=== PATIENT | female | born 1990 | race Caucasian/White ===

== ENCOUNTER 2019-08-28 09:02 | Inpatient (IN) | payer OTHER, SELFPAY ==
[2017-02-08 11:22] VITALS: BMI 21.3
[2019-08-28] VITALS (17 sets, daily range): BP systolic 97–133; BP diastolic 58–79; PULSE 56–83; RESP 16; TEMP 36.6–36.8; O2SAT 98–100; BMI 23.9
[2019-08-28] MEDS: Lactated Ringers 1,000 ML 50 ML IV (09:28)
[2019-08-28 09:30] LABS: Absolute Lymphocyte Count 1.98 X10^3/uL (0.83-4.51); Absolute Neutrophil Count 5.1 X10^3/uL (2.0-7.7); Basophil# 0.06 X10^3/uL; Basophil% 0.8 % (0-1); Eosinophil# 0.04 X10^3/uL; Eosinophils% 0.5 % (0-5); Hematocrit 41.6 % (37-47); Hemoglobin 14.2 g/dL (12.0-15.0); Lymphocyte # 1.98 X10^3/ul (4.0); Lymphocyte % 25.8 % (19-41); Mean Corp Hgb Conc 34.1 g/dL (32-36); Mean Corpuscular Hgb 32.6 pg (27.0-32.0); Mean Corpuscular Volume 95.6 fL (81-99); Mean Platelet Vol. 12.7 fl (6.2-12.0); Monocyte# 0.47 X10^3/uL; Monocyte% 6.1 % (0-10); NRBC Flagged by Analyzer 0 % (0-5); Neutrophil # 5.09 X10^3/uL (2.7-7.7); Neutrophil % 66.3 % (47-70); Platelet Count 162 K/mm3 (150-450); RBC Distribution Width CV 11.8 % (11.6-14.6); RBC Distribution Width SD 40.5 fl (35.1-43.9); Red Blood Count 4.35 M/mm3 (4.2-5.4); White Blood Count 7.7 K/mm3 (4.4-11.0)
[2019-08-28] MEDS: Oxytocin 30 units/NS 500 ml 30 UNITS/500 ML IV.SOLN 334 UNITS IV (10:25)
--- NOTE | 2019-08-28 11:53 | HP.PCM_ITS ---
- Problem List (1) History of section Status: Acute (2) Encounter for trial of labor Status: Acute (3) Active labor at term Status: Acute (4) History of delivery Status: Acute (5) Rh negative status during Status: Acute History Date of Admission: 02/08/17 Final JOSE L: 09/12/19 Final JOSE L Source: US <20 weeks Gestational age: 37 Weeks and 6 Days History of this : This is a 29 year-old, G [3], P [0111], at 37 weeks gestational age. Presented to labor and delivery with contractions every 2-4 minutes and increased pain with contractions. No leakage of fluid or vaginal bleeding. Upon arrival to triage found to be 8 cm dilated. Denies any recent contact with COVID 19 individuals, no shortness of breath, cough, or fever. course complicated by history of section due to breech presentation, , and spontaneous . Allergies No Known Allergies Allergy (Verified 02/08/17 11:23) Home Medications: Home Medications Vits [Prenatabs FA ] 1 tablet PO DAILY 02/08/17 Ibuprofen [Motrin] 600 mg PO Q6H PRN #60 tablet 02/09/17 Oxycodone HCl/Acetaminophen [Percocet 5/325] 1 - 2 tablet PO Q6H PRN PRN #40 tablet 02/09/17 Smoking Status: Never smoker Alcohol: None Number of Fetus(es): 1 NST - FHR Rate Baby A Baseline: 135 Variability:: Moderate Accelerations:: 15 x 15 Decelerations:: None NST Reactive:: Yes FHR Category:: Category I Uterine Activity:: every 2-4 minutes strong History Past Pregnancies: Past Pregnancies Delivery Date Name GA/ Weeks Outcome Route Wt Infant Sex Labor Length Anesthesia Delivery Location Provider FOB Labs: A negative GBS negative 1 hr GCT negative Rubella immune HIGV negative HBs AG negative RPR negative urine tox screen negative Expected Infant Delivery Method: Spontaneous Vaginal Review of Systems Constitutional: Denies: Chills, Fever, Weight Change Eyes: Denies: Blurred vision HEENT: Denies: Head Aches, Sinus Congestion, Sinus Drainage Cardiovascular: Denies: Chest Pain Respiratory: Denies: Shortness of Breath Genitourinary: Denies: Dysuria Neurological: Denies: Numbness, Tingling, Focal weakness Psychiatric: Denies: Anxiety, Depression, Homicidal Ideations, Suicidal Ideations Physical Exam Vitals: Vital Signs Pulse BP Pulse Ox 65 110/68 100 08/28/19 11:45 08/28/19 11:45 08/28/19 08:56 General: Alert, Oriented x3, Cooperative HEENT: Atraumatic, Normocephalic Cardiovascular: Regular rate, Regular Rhythm, No murmurs Lungs: Clear to auscultation, Normal air movement, No rhonchi, No wheeze Abdomen: Gravid Extremities:: No edema Neurological: Deep Tendon Reflexes 2+/4 and Symmetrical EMERY GRINDER: Normal external genitalia Estimated gestational size: Appropriate for gestational size Presentation: Cephalic Cervix Dilation (cm): 8 - vertex, BBOW. AROM for small amount of clear fluid Station: -2 Effacement (%): 90 Assessment/Plan All Active Problems History of section (Acute) Encounter for trial of labor (Acute) Active labor at term (Acute) History of delivery (Acute) Rh negative status during (Acute) This is a 29 year-old, G [3], P [0111], at 37 weeks gestational age in active labor A:Active labor TOLAC #1 Previous LTCS Category 1 FHT P: 1) Admit to labor and delivery 2) IV placement and routine labs 3) Requesting epidural but advanced dilation and after AROM 9cm. 4) Reviewed option of repeat section vs TOLAC, she desires TOLAC. Good candidate, previous section due to breech presentation at 31 weeks in labor. Low transverse section with double layer closure. notified of patient TOLAC and present on hospital property and immediately available if needed. Anesthesia notified by nursing staff of TOLAC. 5) Anticipate vaginal delivery soon. 6) Reviewed no COVID 19 exposures, no cough, shortness of breath, fever, or diarrhea. 7) collaborative physician and notified of patient in labor.
--- NOTE | 2019-08-28 12:20 | PCM.OPRPT ---
Problem List (1) History of section Status: Acute (2) Encounter for trial of labor Status: Acute (3) Active labor at term Status: Acute (4) History of delivery Status: Acute (5) Rh negative status during Status: Acute (6) (vaginal after ) Status: Acute (7) Laceration of vaginal wall or sulcus without perineal laceration during delivery Status: Acute (8) Periurethral laceration, delivered, current hospitalization Status: Acute Vaginal Delivery Maternal Presentation: Active Labor Amniotic Membrane Rupture Type: Artificial Amniotic Fluid Description: Clear Final JOSE L: 09/12/19 Gestational age: 37 Weeks and 6 Days Date of Procedure: 08/28/19 Pre-Operative Diagnosis: Active Labor Post-Operative Diagnosis: Vaginal after section Surgery/ Procedure Performed: Spontaneous Vaginal Delivery Type of Anesthesia: Local with 1% lidocaine Description of Procedure: Presented at 8cm dilation and progressed to complete with urge to push. Unmedicated. Successful of viable male infant over 1st degree right vaginal laceration, left periurethral, left labial, and left sulcus laceration. APGARS 8, 9. head delivered without complications and body forthcoming, strong cry. Mouth and nares suctioned for secretion. Placed on maternal abdomen skin to skin. Pitocin started for active 3rd stage management. Cord clamped and cut after pulsations ceased by FOB. Placenta delivered with maternal effort, intact, 3 vessel cord. Perineum inspected and revealed 1st degree right vaginal laceration and left sulcus laceration repaired with 3.0 vicryl and 1% Lidocaine. Left periurethral and left labial repaired with 3.0 Rapide. Patient tolerated well Well approximated and hemostasis achieved. Vaginal sweep completed. EBL 350ml, hemostasis achieved. Sponge and instrument count complete. . notified of delivery, was present on hospital property for . Presentation: Vertex Placental Delivery Description: Spontaneous Placenta Disposition: [facility] Cord Vessel Description: 3 Vessels Cord Entanglement: None Estimated Blood Loss: 350 ml Infant A gender: Male (1 minute): 8 (5 minute): 9 Episiotomy Description: None Laceration: Periurethral Extnsion/lac - Periurethral left. No clitoral or urethral compromise, intact., Vaginal Extension/lac - Left sulcus laceration. left periclitoral left labial., 1st degree - right 1st degree laceration, vaginal. No midline involvement. Medications given after delivery: IV Pitocin
[2019-08-28] MEDS: Acetaminophen 325 MG Tablet PO (12:56)
[2019-08-28] MEDS: Acetaminophen 500 MG Tablet 1000 MG PO (16:46)
[2019-08-28] MEDS: Dibucaine 30 GM Tube 1 APPLIC TOPICAL (16:46)
[2019-08-29] VITALS (7 sets, daily range): BP systolic 111–119; BP diastolic 65–77; PULSE 55–81; RESP 16–18; TEMP 36.4–36.7
[2019-08-29] MEDS: Acetaminophen 500 MG Tablet 1000 MG PO ×2 (01:45→10:38)
[2019-08-29 06:23] LABS: Hematocrit 35.6 % (37-47); Hemoglobin 12.2 g/dL (12.0-15.0); Mean Corp Hgb Conc 34.3 g/dL (32-36); Mean Corpuscular Hgb 32.6 pg (27.0-32.0); Mean Corpuscular Volume 95.2 fL (81-99); Mean Platelet Vol. 12.7 fl (6.2-12.0); Platelet Count 135 K/mm3 (150-450); RBC Distribution Width CV 11.8 % (11.6-14.6); RBC Distribution Width SD 40.2 fl (35.1-43.9); Red Blood Count 3.74 M/mm3 (4.2-5.4); White Blood Count 11.3 K/mm3 (4.4-11.0)
--- NOTE | 2019-08-29 07:09 | PN.OBGYN_ITS ---
Patient Problems: Active and Suspected Problems History of section (Acute) Encounter for trial of labor (Acute) Active labor at term (Acute) History of delivery (Acute) Rh negative status during (Acute) (vaginal after ) (Acute) Laceration of vaginal wall or sulcus without perineal laceration during delivery (Acute) Periurethral laceration, delivered, current hospitalization (Acute) Subjective: Patient seen at bedside, doing well. Patient reports good pain control. Mild lochia. Breast-feeding going well. Voiding without difficulty. - Physical Exam Vitals/I&O's: Vital Signs Temp Pulse Resp BP Pulse Ox 97.5 F L 55 L 16 111/65 98 08/29/19 03:15 08/29/19 03:15 08/29/19 03:15 08/29/19 03:15 08/28/19 16:39 Oxygen Delivery Method Room Air Weight: 61.235 kg Body Mass Index (BMI) 23.9 Intake and Output for Last 24 Hours 08/27/19 08/28/19 08/29/19 23:59 23:59 23:59 Intake Total 547.5 / 547.5 Output Total 200 / 200 Balance 347.5 / 347.5 General: Alert, Oriented x3 Abdomen: Soft, Non Tender, Non-Distended, - - fundus firm Extremities: No Calf Tenderness Laboratory Results 08/28/19 09:20: WBC 7.7, RBC 4.35, Hgb 14.2, Hct 41.6, MCV 95.6, MCH 32.6 H, MCHC 34.1, RDW Std Deviation 40.5, RDW Coeff of Karlie 11.8, Plt Count 162, MPV 12.7 H, Immature Gran % (Auto) 0.500, Neut % (Auto) 66.3, Lymph % (Auto) 25.8, [place] % (Auto) 6.1, Eos % (Auto) 0.5, Baso % (Auto) 0.8, Absolute Neuts (auto) 5.1, Absolute Lymphs (auto) 1.98, Nucleated RBC % 0 08/28/19 09:20: Blood Type A NEGATIVE, Antibody Screen POSITIVE H, Antibody Identification ANTI-D 08/28/19 16:35: Screen NEGATIVE, Baby's Blood Type A POSITIVE, Baby's CANDACE NEGATIVE 08/29/19 06:07: WBC 11.3 H, RBC 3.74 L, Hgb 12.2, Hct 35.6 L, MCV 95.2, MCH 32.6 H, MCHC 34.3, RDW Std Deviation 40.2, RDW Coeff of Karlie 11.8, Plt Count 135 L, MPV 12.7 H Current Medications Acetaminophen (Tylenol) 1,000 mg PO Q8H PRN PRN PRN Reason: Pain Score 1-3/10 Last Admin: 08/29/19 01:45 Dose: 1,000 mg Documented by: Bisacodyl (Dulcolax) 10 mg RECTAL UD PRN PRN Reason: If no BM Dibucaine (Dibucaine) 1 applic TOPICAL TID PRN PRN; Protocol PRN Reason: Discomfort Last Admin: 08/28/19 16:46 Dose: 1 tube Documented by: Hydrocortisone (Hytone) 1 applic TOPICAL TID PRN PRN; Protocol PRN Reason: Discomfort Methylergonovine Maleate (Methergine) 0.2 mg IM X1 PRN PRN Reason: Excess bleeding/uterine atony Naproxen (Naprosyn) 500 mg PO Q8H PRN PRN PRN Reason: Pain Score 1-3/10 Ondansetron HCl (Zofran) 4 mg IV Q4H PRN PRN PRN Reason: Nausea Multivit/Folic Acid/Iron (Prenatabs Fa) 1 tablet PO DAILY@1200 NINOSKA Senna/Docusate Sodium (Senokot-S, Phyllis-Colace) 1 - 2 tablet PO DAILY PRN PRN PRN Reason: Constipation Simethicone (Mylicon) 80 mg PO PCHS PRN PRN Reason: Indigestion/Stomach pain Sodium Chloride () 5 - 15 ml IV UD PRN PRN Reason: SALINE FLUSH Medical Necessity - Tobacco Use Smoking Status: Never smoker Assessment/Plan All Active Problems History of section (Acute) Encounter for trial of labor (Acute) Active labor at term (Acute) History of delivery (Acute) Rh negative status during (Acute) (vaginal after ) (Acute) Laceration of vaginal wall or sulcus without perineal laceration during delivery (Acute) Periurethral laceration, delivered, current hospitalization (Acute) PPD#1, doing well. routine care pain mgmt dc home
--- NOTE | 2019-08-29 07:12 | DCINST_ITS ---
Discharge Diet: No Restrictions Discharge Activity: Return to Normal Activity, May not drive while taking narcotic pain medications., May Shower May resume sexual activity in: 4-6 weeks Additional Activity Instructions:: Nothing in the vagina for 4-6 weeks. You may return to work/school in 6 weeks. Call your doctor if your incision/area has: Continuous Slow Oozing, Sudden Increased Bleeding, Increased Pain/ Swelling, Increased Redness, Foul Smelling Discharge Additional Instructions: If you experience any of the following, contact your healthcare provider. * Bleeding that soaks a pad every hour for 2 hours * Fever 100.4 or higher * Unrelieved incision or abdominal pain * Swelling, redness, discharge or bleeding from your incision or episiotomy site * Your incision begins to separate * Problems urinating (including inability to urinate or burning while urinating). * Visual changes * Severe headache * Flu-like symptoms * Pain or redness in one of both of your breasts * Pain, warmth, tenderness or swelling in your legs, especially the calf area * Frequent nausea and vomiting * Symptoms of depression or anxiety If you experience any of the following, call 911 or go to the nearest Emergency Room. * Chest pain * Problems breathing * Seizure activity * Partial or complete paralysis of a body part, slurred speech, weakness or drooping of the face, or a sudden inability to walk or hold your balance Allergies/Adverse Reactions: Allergies No Known Allergies Allergy (Verified 02/08/17 11:23) Medications to take at Discharge Ibuprofen [Motrin] 600 mg PO Q6H PRN #60 tablet 02/09/17 Oxycodone HCl/Acetaminophen [Percocet 5-325] 1 - 2 tablet PO Q6H PRN PRN #40 tablet 02/09/17 Vits [Prenatabs FA ] 1 tablet PO DAILY@1200 tablet 08/29/19 When: Call to make an appointment with your doctor in 6 weeks. If you had elevated Blood Pressure or 4th degree laceration you will need to be seen in 2 weeks. Primary Care Physician: Care Physician,No Primary [Primary Care Provider] - Test Results: Test results from this visit will be discussed in further detail at your follow- up appointment, if applicable.
[2019-08-29] MEDS: Prenatal Vits Tablet 1 TABLET PO (09:02)
== END 2019-08-29 12:55 | disposition home or self-care (01) | DRG 806 ==
LOC: WPOUT 09:05 → WP 09:05
PROVIDERS: Obstetrics & Gynecology; Admitting Provider Advanced Practice Midwife; Referring Provider Advanced Practice Midwife; Visit Provider Advanced Practice Midwife
PROC: (CPT 59514; principal; 2019-09-09 07:15)
DX: O34.211 Maternal care for low transverse scar from previous cesarean delivery (principal); O71.4 Obstetric high vaginal laceration alone; Z37.0 Single live birth; Z3A.37 37 weeks gestation of pregnancy; O71.82 Other specified trauma to perineum and vulva
CPT/HCPCS: 59025; 59050; 85025; 85027; 85461; 86850; 86870; 86900; 86901; 90384; 99218; J7120; G0378; J2790

== ENCOUNTER 2022-06-25 05:38 | Inpatient (IN) | payer BC, SELFPAY ==
[2022-06-25] VITALS (37 sets, daily range): BP systolic 104–124; BP diastolic 58–74; PULSE 59–81; RESP 16–18; TEMP 36.4–36.8; O2SAT 98–100; BMI 23.7
[2022-06-25] MEDS: Lactated Ringers 1,000 ML 50 ML IV (05:45)
[2022-06-25 06:08] LABS: Absolute Lymphocyte Count 3.78 X10^3/uL (0.83-4.51); Absolute Neutrophil Count 4.7 X10^3/uL (2.0-7.7); Basophil# 0.06 X10^3/uL; Basophil% 0.6 % (0-1); Eosinophil# 0.12 X10^3/uL; Eosinophils% 1.3 % (0-5); Hematocrit 38.5 % (37-47); Lymphocyte # 3.78 X10^3/ul (0.83-4.51); Lymphocyte % 39.8 % (19-41); Mean Corp Hgb Conc 33.8 g/dL (32-36); Mean Corpuscular Hgb 32.5 pg (27.0-32.0); Mean Corpuscular Volume 96.3 fL (81-99); Mean Platelet Vol. 12.5 fl (6.2-12.0); Monocyte# 0.84 X10^3/uL; Monocyte% 8.9 % (0-10); NRBC Flagged by Analyzer 0 % (0-5); Neutrophil # 4.66 X10^3/uL (2.7-7.7); Neutrophil % 49.1 % (47-70); Platelet Count 205 K/mm3 (150-450); RBC Distribution Width CV 11.7 % (11.6-14.6); RBC Distribution Width SD 41.1 fl (35.1-43.9); White Blood Count 9.5 K/mm3 (4.4-11.0)
[2022-06-25] MEDS: Oxytocin 10 UNITS/ML Vial IM (06:34)
[2022-06-25] MEDS: Oxytocin 15 Units/NS 250ml 15 UNITS/250 ML IV.SOLN 83 UNITS IV (06:35)
--- NOTE | 2022-06-25 07:09 | EX.PCM.OBRPT ---
Assessment & Plan (1) History of section: (2) (vaginal after ): (3) 39 weeks gestation of : Maternal Data Information Final JOSE L: 07/02/22 Gestational age: 39 Vaginal Delivery Maternal Presentation Maternal Presentation: Active Labor Operative Information Date of Procedure: 06/25/22 Pre-Operative Diagnosis: labor Post-Operative Diagnosis: same Surgery / Procedure Performed: Type of Anesthesia: Local with 1% Lidocaine Special Medications: none Drain: Mari to straight drain Estimated Blood Loss: 600 Time of Delivery: 06:31 Findings Description of Procedure: When I arrived the patient was 10 cm. Artificial rupture membranes was performed and a moderate amount of port wine stained fluid returned. There is a moderate amount of vaginal bleeding at this point. A vigorous [female] was delivered [YASMIN] over a small first-degree perineal laceration. The remainder the was delivered with maternal pushing immediately following without any traction. IM and IV Pitocin was given for management of the third stage. The cord was clamped and cut [after 1 minute]. The infant was attended to by the waiting nursing staff. The placenta was delivered spontaneously and intact with moderate amount of clots. I did. There might be a partial abruption around the edges. The cervix and vagina were intact. There is a first-degree vaginal laceration near the urethra that was actively bleeding. Therefore some 1% Xylocaine approximately 6 cc was infiltrated there and in the first-degree perineal laceration they were oversewn with 3-0 Vicryl suture for hemostasis. Sponge and needle counts were correct. There is no atony but the uterus did fill with clots by the end of the repair. The uterus was explored and intact. It was emptied of all clots and debris. A vaginal sweep was completed by me. Presentation: YASMIN Amniotic Membrane Rupture Type: Artificial Amniotic Fluid Description: Bloody Placental Delivery Description: Spontaneous Placenta Disposition: [facility] Cord Vessel Description: 3 Vessels Cord Entanglement: None Infant A Gender: Female (Kaylin) (1 minute): 9 (5 minute): 9 Delayed Cord Clamping: Yes Post Vaginal Delivery Medications Given After Delivery: IV Pitocin (and IM) Episiotomy Description: None Complication Complications: None
--- NOTE | 2022-06-25 07:18 | PCM.HP.OB ---
HPI - General General Date of Admission: 06/25/22 Date of Service: 06/25/22 Chief Complaint: labor HPI Narrative SKIP ESQUIVEL, is a 32-year-old 4 para 1-1-1-2 who presents at 39 weeks gestation in active labor. She arrived to labor and delivery at 8 cm. She started eduardo at approximately 430 this morning. She had some moderate vaginal bleeding, no leaking of fluid. is complicated to date by history of labor, previous x1 desires trial of labor. Patient is also Rh-. Maternal Data Information Final JOSE L: 07/02/22 Gestational age: 39 PFSH PFSH Home Medications vits,calcium no.78-iron fumarate-folic acid 29 mg-1 mg tablet 1 tablet PO DAILY@1200 06/25/22 [History Last Taken Unknown] Allergy/AdvReac Type Severity Reaction Status Date / Time No Known Allergies Allergy Verified 02/08/17 11:23 Surgical History (Updated 06/25/22 @ 05:50 by Kassi Roa) Previous section Social History Smoking Status: Never smoker History Elective abortions Hx Para 2 Spontaneous abortions Hx # Term Pregnancies Ectopic pregnancies Hx # Pregnancies Multiple births # of living children ROS Constitutional Constitutional: Denies fatigue, fever(s) or malaise Eyes Eyes: Denies change in vision ENT HEENT: Denies dizziness or headache(s) Cardiovascular Cardiovascular: Denies chest pain, dyspnea or lightheadedness Respiratory/Chest Respiratory/Chest: Denies cough or dyspnea Gastrointestinal Gastrointestinal: Denies change in bowel habits Genitourinary Genitourinary: Denies burning urination or genital lesions Integumentary Integumentary: Denies rash Neurologic Neurologic: Denies confusion, dizziness, headache(s), numbness or weakness Vital Signs Vital Signs Vital Signs: 06/25/22 06:06 06/25/22 06:07 06/25/22 06:07 Temperature Temperature Source Temporal Pulse Rate 64 Blood Pressure 115/59 L BP Systolic 115 BP Diastolic 59 Pulse Ox 06/25/22 06:06 06/25/22 07:14 06/25/22 07:14 Temperature 97.6 F L Temperature Source Pulse Rate 72 Blood Pressure 113/74 BP Systolic 113 BP Diastolic 74 Pulse Ox 06/25/22 07:14 06/25/22 07:14 Temperature Temperature Source Pulse Rate 72 Blood Pressure BP Systolic BP Diastolic Pulse Ox 99 Weight Weight: 62.652 kg Body Mass Index (BMI) 23.7 Physical Exam Const alert and no apparent distress General Appearance: cooperative HEENT normocephalic Resp normal respiratory effort Cardio regular rate GI soft to palpation GI Narrative: gravid, nontender, appropriate for gestational age Extremity no calf tenderness General Extremity: edema Skin no wounds Rashes: No rashes noted Psych activity/motor behavior normal Labs Labs Labs: Blood Type A NEGATIVE Antibody Screen POSITIVE H Hct 38.5 % (37-47) Hgb 13.0 g/dL (12.0-15.0) Group B Strep DNA Negative (Negative) Rhogam given: Yes Assessment & Plan (1) 39 weeks gestation of : PLAN: Spontaneous labor at term. Suspect partial abruption. Patient's labor progressed too quickly for epidural. Estimated weight is less than 4000 g clinically and pelvis clinically adequate to expect vaginal delivery. Room prepared for precipitous delivery (2) (vaginal after ):
--- NOTE | 2022-06-25 07:45 | PCM.PN.OB ---
Subjective Subjective Pain well controlled. Average lochia. No nausea or vomiting. Tolerating regular diet. Able to ambulate without difficulty. Denies chest pain, shortness of breath or lightheadedness. Has been able to urinate without difficulty Objective Data Objective Data Vital Signs: Vital Signs Temp Pulse BP Pulse Ox 97.6 F L 66 114/59 L 100 06/25/22 06:06 06/25/22 07:39 06/25/22 07:32 06/25/22 07:39 Weight: 62.652 kg Body Mass Index (BMI) 23.7 Intake & Output: Intake and Output for Last 24 Hours 06/23/22 06/24/22 06/25/22 23:59 23:59 23:59 Intake Total 44.17 / 44.17 Output Total 600 / 600 Balance -555.83 / -555.83 Lab / Micro Data Result Diagrams: 06/25/22 05:45 Labs: Laboratory Results - last 24 hr 06/25/22 05:45: WBC 9.5, RBC 4.00 L, Hgb 13.0, Hct 38.5, MCV 96.3, MCH 32.5 H, MCHC 33.8, RDW Std Deviation 41.1, RDW Coeff of Karlie 11.7, Plt Count 205, MPV 12.5 H, Immature Gran % (Auto) 0.300, Neut % (Auto) 49.1, Lymph % (Auto) 39.8, [place] % (Auto) 8.9, Eos % (Auto) 1.3, Baso % (Auto) 0.6, Absolute Neuts (auto) 4.7, Absolute Lymphs (auto) 3.78, Nucleated RBC % 0 Physical Exam Const alert General Appearance: cooperative GI GI Narrative: soft, moderate distention, fundus firm, appropriately tender. Abdominal bandage clean dry and intact Assessment & Plan (1) delivery delivered: PLAN: Postoperative day #1 status post repeat section. Patient and are doing well. Mild acute blood loss anemia appropriate for blood loss after surgery. Recheck CBC at noon today. Patient would like to be discharged home later today if okay with pediatrics.
[2022-06-25] MEDS: Ibuprofen 600 MG Tablet PO ×2 (09:49→16:20)
[2022-06-26] VITALS (8 sets, daily range): BP systolic 108–115; BP diastolic 61–69; PULSE 61–72; RESP 14–16; TEMP 36.1–36.6; O2SAT 97–99
[2022-06-26 04:55] LABS: Hematocrit 30.1 % (37-47); Hemoglobin 10.1 g/dL (12.0-15.0); Mean Corp Hgb Conc 33.6 g/dL (32-36); Mean Corpuscular Hgb 32.7 pg (27.0-32.0); Mean Corpuscular Volume 97.4 fL (81-99); Mean Platelet Vol. 12.4 fl (6.2-12.0); Platelet Count 164 K/mm3 (150-450); RBC Distribution Width CV 11.9 % (11.6-14.6); RBC Distribution Width SD 41.4 fl (35.1-43.9); Red Blood Count 3.09 M/mm3 (4.2-5.4); White Blood Count 10.4 K/mm3 (4.4-11.0)
[2022-06-26] MEDS: Acetaminophen 500 MG Tablet 1000 MG PO (05:11)
--- NOTE | 2022-06-26 06:40 | PCM.PROGNOTE ---
Subjective Subjective patient seen at bedside, doing well. Patient reports good pain control. lochia mild. breast feeding,voiding w/o difficulty. Objective Data Objective Data Vital Signs: Vital Signs Temp Pulse Resp BP Pulse Ox O2 Del Method 98 F 65 16 115/68 97 Room Air 06/26/22 04:45 06/26/22 04:45 06/26/22 04:45 06/26/22 04:45 06/26/22 04:45 06/26/22 04:45 Oxygen Delivery Method Room Air Weight: 62.652 kg Body Mass Index (BMI) 23.7 Intake & Output: Intake and Output for Last 24 Hours 06/24/22 06/25/22 06/26/22 23:59 23:59 23:59 Intake Total 294.17 / 294.17 Output Total 1150 / 1150 Balance -855.83 / -855.83 Lab / Micro Data Result Diagrams: 06/26/22 04:30 Labs: Laboratory Results - last 24 hr 06/25/22 05:45: Blood Type A NEGATIVE, Antibody Screen POSITIVE H, Antibody Identification ANTI-D 06/26/22 04:30: WBC 10.4, RBC 3.09 L, Hgb 10.1 L, Hct 30.1 L, MCV 97.4, MCH 32.7 H, MCHC 33.6, RDW Std Deviation 41.4, RDW Coeff of Karlie 11.9, Plt Count 164, MPV 12.4 H Physical Exam Const alert and oriented x3 General Appearance: cooperative HEENT normocephalic Neck General: normal visual inspection GI soft to palpation and non-distended GI Narrative: Fundus firm Extremity normal to inspection and no calf tenderness Skin no rashes or lesions noted Neuro oriented x3 and CN's II-XII intact bilaterally Psych mental status grossly normal Assessment & Plan Assessment/Plan (1) (vaginal after ): PLAN: Plan PPD# 1 , Doing well Routine care pain mgmt ambulation dc home
--- NOTE | 2022-06-26 06:41 | DCINST_ITS ---
Discharge Instructions Procedure Vaginal Delivery Diet Discharge Diet: No restrictions Activity May resume sexual activity in: 6-8 weeks Dressing / Incision Call your doctor if you observe: Fever of 101 or Higher, Inability to urinate, Using more than 1 pad per hour and Uncontrolled pain Follow Up Care Please Follow Up With: Mona Up MD When: 1-2 weeks post and again at 6 weeks post . [phone] Test Results: Test results from this visit will be discussed in further detail at your follow- up appointment, if applicable. Discharge Plan Admission Admit Date/Time: 06/25/22 05:38 Attending Provider: Brit Pires Primary Care Provider: Care Physician,Rocio Primary Discharge Orders/Prescriptions Prescriptions: New acetaminophen 500 mg Tablet 1,000 mg PO Q6H PRN PRN (Reason: Pain 1-10 Or Fever) Qty: 0 0RF ibuprofen 600 mg Tablet 600 mg PO Q6H PRN PRN (Reason: Pain Score 1-3) Qty: 0 0RF Continued vit,[id number] 1 TABLET tablet 1 tablet PO DAILY@1200 Referrals / Follow Up: Care Physician,No Primary [Primary Care Provider] - Disposition Disposition (needs filled in before D/C Order can be placed): Home, Self Care
--- NOTE | 2022-06-30 15:48 | NURSING ---
06/30/22 @ 3481: Follow up phone call. Pt. reports feeling good; lochia minimal, no s+s. Reports is going good and that she was satisfied with her hospital stay.
== END 2022-06-26 11:00 | disposition home or self-care (01) | DRG 805 ==
PROVIDERS: Admitting Provider Obstetrics & Gynecology; Referring Provider Obstetrics & Gynecology; Visit Provider Obstetrics & Gynecology
DX: O34.219 Maternal care for unspecified type scar from previous cesarean delivery (principal); Z37.0 Single live birth; O45.93 Premature separation of placenta, unspecified, third trimester; O62.3 Precipitate labor; O71.82 Other specified trauma to perineum and vulva; O70.0 First degree perineal laceration during delivery; Z3A.39 39 weeks gestation of pregnancy
CPT/HCPCS: 59025; 59050; 85025; 85027; 86850; 86870; 86900; 86901; 99221; J7120; G0378